=== PATIENT | female | born 1985 | race Caucasian/White ===

== ENCOUNTER 2020-04-10 16:30 | Inpatient (IN) | payer BC ==
[~2020-04-10] VITALS: Ht 170.2 cm; Wt 118.8 kg
[2020-04-10 17:30] VITALS: BP 148/84
[2020-04-10 17:45] LABS: APPEARANCE,URINE Clear (CLEAR); BILIRUBIN,URINE Negative (NEGATIVE); COLOR,URINE Yellow (YELLOW); GLUCOSE, URINE (UA) Negative (NEGATIVE); KETONES,URINE 15 mg/dL (NEGATIVE); LEUKOCYTE ESTERASE ,URINE Negative (NEGATIVE); NITRATE,URINE Negative (NEGATIVE); OCCULT BLOOD,URINE Negative (NEGATIVE); PROTEIN,URINE Negative (NEGATIVE); UROBILINOGEN,URINE 0.2 mg/dL (0.2-1.0)
[2020-04-10] MEDS ORDERED: LACTATED RINGERS 1000ML 1,000 ML IV SCH (18:00)
[2020-04-10] MEDS ORDERED: CEFAZOLIN SODIUM 1 GM VIAL IVP PRN (18:00)
[2020-04-10] MEDS ORDERED: LACTATED RINGERS 1000ML 1,000 ML IV ONE (20:53)
[2020-04-10] MEDS: LABETALOL HCL 200 MG TABLET PO SCH (21:00)
[2020-04-10] MEDS ORDERED: CITRIC ACID/SODIUM CITRATE 30 ML UDCUP ONE (21:02)
[2020-04-10] MEDS ORDERED: CEFAZOLIN 3GM /D5W 100ML 100 ML IV PRN (21:15)
[2020-04-10] MEDS ORDERED: COMPOUND IV REFRIGERATED 1 EACH IVSOLN MISC PRN (21:15)
[2020-04-10] MEDS ORDERED: CITRIC ACID/SODIUM CITRATE 30 ML UDCUP PO SCH (22:00)
[2020-04-11] MEDS ORDERED: CALDOLOR 800MG+NS 250ML 250 ML IV ONE (07:29)
[2020-04-11] MEDS ORDERED: CEFAZOLIN SODIUM 1 GM VIAL ONE (07:30)
[2020-04-11] MEDS ORDERED: LABETALOL HCL 100 MG TABLET ONE ×3 (07:58→21:02)
[2020-04-11] MEDS ORDERED: DURAMORPH PF1 MG/ML 10ML AMP IV ONE (09:26)
[2020-04-11] MEDS ORDERED: PHENYLEPHRINE HCL 10 MG/ML 1ML VIAL IV ONE (09:26)
[2020-04-11] MEDS ORDERED: DEXAMETHASONE SOD PHOSPHATE 10MG/ML 1ML VIAL ONE (09:26)
[2020-04-11] MEDS ORDERED: ONDANSETRON HCL 4 MG/2 ML VIAL ONE (09:26)
[2020-04-11] MEDS ORDERED: OXYTOCIN 10 USP UNITS/ML ONE (09:26)
[2020-04-11] MEDS ORDERED: CEFAZOLIN SODIUM 1 GM VIAL IVP ONE (09:35)
[2020-04-11] MEDS ORDERED: EPHEDRINE SULFATE 50 MG/ML AMPULE ONE (09:42)
[2020-04-11] MEDS ORDERED: MISOPROSTOL 200 MCG TABLET ONE (09:54)
[2020-04-11] MEDS ORDERED: TRANEXAMIC ACID 1000MG/10ML ONE (09:54)
[2020-04-11] MEDS ORDERED: OXYTOCIN 10 UNIT/1ML 10ML VIAL ONE (10:06)
[2020-04-11] MEDS ORDERED: MISOPROSTOL 200 MCG TABLET PR ONE (10:20)
[2020-04-11] MEDS ORDERED: ACETAMINOPHEN EXTRA STRENGTH 500 MG TABLET PO PRN (10:45)
[2020-04-11] MEDS ORDERED: ACETAMINOPHEN-CODEINE 300/30MG TAB PO PRN (10:45)
[2020-04-11] MEDS ORDERED: DIPHENHYDRAMINE HCL 25 MG CAPSULE PO PRN (10:45)
[2020-04-11] MEDS ORDERED: IBUPROFEN 800 MG TAB PO SCH (10:45)
[2020-04-11] MEDS ORDERED: SODIUM CHLORIDE 0.9% 10 ML VIAL IVP PRN (10:45)
[2020-04-11] MEDS ORDERED: MEASLES/MUMPS/RUBELLA VACCINE, LIVE 0.5 ML/VIAL SQ SCH (10:45)
[2020-04-11] MEDS ORDERED: OXYTOCIN-LR 20 UNITS/1000 ML 1,000 ML IV PRN (10:45)
[2020-04-11] MEDS ORDERED: BISACODYL 10 MG SUPP.RECT RC PRN (10:45)
[2020-04-11] MEDS ORDERED: MEPERIDINE-PF 75 MG/ML SYG IM PRN (10:45)
[2020-04-11] MEDS ORDERED: LANOLIN 30GM OINTMENT TP PRN (10:45)
[2020-04-11] MEDS ORDERED: PROMETHAZINE HCL 25 MG/ML 1ML AMPULE IM PRN (10:45)
[2020-04-11] MEDS ORDERED: DIPH,PERTUSS(ACELL),TET VAC/PF 0.5 ML VIAL IM SCH (10:45)
[2020-04-11] MEDS ORDERED: DEXTROSE 5 %-0.45 % NACL 1,000 ML IV PRN (10:45)
[2020-04-11] MEDS ORDERED: DiphenhydrAMINE HCL 50 MG/ML VIAL IVP PRN (12:15)
[2020-04-11] MEDS ORDERED: ONDANSETRON HCL 4 MG/2 ML VIAL IVP PRN (12:15)
[2020-04-11] MEDS ORDERED: NALOXONE HCL 0.4 MG/1 ML ML IVP PRN ×3 (12:15)
[2020-04-11 13:54] VITALS: BP 134/76
[2020-04-11] MEDS: HYDROCODONE/ACETAMINOPHEN 5/325 MG TAB PO PRN ×2 (14:04→22:07)
[2020-04-11 16:10] VITALS: BP 140/76
[2020-04-11] MEDS ORDERED: PNV1TABL17 PO (16:31)
[2020-04-11] MEDS: CALDOLOR 800MG+NS 250ML 250 ML IV SCH (18:16)
--- NOTE | 2020-04-11 20:45 | NUR ---
STATUS ENCOURAGED TO TCD[facility], USE IS, PUSH FLUIDS Addendum: 04/12/20 at 0137 by ANNA JIMÉNEZ LVN Amended: Links added.
[2020-04-11] MEDS: SIMETHICONE 80 MG TAB.CHEW PO PRN (21:06)
[2020-04-11] MEDS: DOCUSATE SODIUM 100 MG CAP PO SCH (21:06)
[2020-04-11 21:10] VITALS: BP 150/93
[2020-04-11 22:25] VITALS: BP 142/78
--- NOTE | 2020-04-11 22:55 | NUR ---
IV ATTEMPTED TO RESTART IV WITH 20 GAUGE INTROCAN AND UNSUCCESSFUL, PATIENT DOES NOT WANT IV RESTARTED, VERBALIZED IS NOT EASY TO START HER IV, ENCOURAGED TO PUSH FLUIDS Addendum: 04/12/20 at 0148 by ANNA JIMÉNEZ LVN Amended: Links added.
[2020-04-12] MEDS: CALDOLOR 800MG+NS 250ML 250 ML IV SCH (02:45)
[2020-04-12 03:00] VITALS: BP 117/69
--- NOTE | 2020-04-12 05:50 | NUR ---
ROSSI CATHETER/ STATUS F/C REMOVED. INTACT, TOLERATED WELL, TAKING FLUIDS WELL, UP TO SIDE OF BED TO DANGLE Addendum: 04/12/20 at 0641 by ANNA JIMÉNEZ LVN Amended: Links added.
[2020-04-12 08:00] VITALS: BP 132/85
--- NOTE | 2020-04-12 08:00 | NUR ---
ASSESSMENT DONE AND PATIENT IS STABLE. INCISION IS OPEN TO AIR WITH DERMABOND. PATIENT HAS NO IV.
[2020-04-12] MEDS ORDERED: LIDOCAINE 5% TOPICAL PATCH TP SCH (09:00)
[2020-04-12] MEDS: SIMETHICONE 80 MG TAB.CHEW PO PRN (09:06)
[2020-04-12] MEDS: DOCUSATE SODIUM 100 MG CAP PO SCH (09:07)
[2020-04-12] MEDS: LABETALOL HCL 200 MG TABLET PO SCH (09:16)
--- NOTE | 2020-04-12 10:30 | NUR ---
PATIENT WAS GIVEN DISCHARGE INSTRUCTIONS AND VERBALIZED UNDERSTANDING INSTRUCTIONS GIVEN. PATIENT HAD BEEN GIVEN SCRIPT FOR PAIN MANAGEMENT ON LAST OB VISIT. PATIENT STABLE AND DENIES PAIN.
--- NOTE | 2020-04-12 10:55 | NUR ---
PATIENT WAS TAKEN VIA W/C TO [facility] [employer] [employer] IN [employer]. PATIENT IS STABLE AND DENIES PAIN.
== END 2020-04-12 10:55 | disposition home or self-care (01) | DRG 788 ==
LOC: LDH 16:30 → OBSVTOIN 16:30 → WSH 04-11 13:46
PROVIDERS: ADMIT Obstetrics & Gynecology; ATTEND Obstetrics & Gynecology
PROC: 0DNU0ZZ Release Omentum, Open Approach (ICD-10-PCS; 2020-04-11)
PROC: 3E0234Z Introduction of Serum, Toxoid and Vaccine into Muscle, Percutaneous Approach (ICD-10-PCS; 2020-04-11)
PROC: 3E0134Z Introduction of Serum, Toxoid and Vaccine into Subcutaneous Tissue, Percutaneous Approach (ICD-10-PCS; 2020-04-11)
PROC: 10D00Z1 Extraction of Products of Conception, Low, Open Approach (ICD-10-PCS; principal; 2020-04-11 08:30)
DX: O34.211 Maternal care for low transverse scar from previous cesarean delivery (principal); O14.94 Unspecified pre-eclampsia, complicating childbirth; Z3A.38 38 weeks gestation of pregnancy; O99.89 Other specified diseases and conditions complicating pregnancy, childbirth and the puerperium; N73.6 Female pelvic peritoneal adhesions (postinfective); O69.81X0 Labor and delivery complicated by cord around neck, without compression, not applicable or unspecified; O62.2 Other uterine inertia; Z37.0 Single live birth; Z23 Encounter for immunization
CPT/HCPCS: 36415; 59510; 81003; 85025; 86592; 86850; 86900; 86901; 87340; A4344; G0378; J0690; J1100; J1200; J1741; J2274; J2370; J2405; J2590; J3490; J7120; U0003